=== PATIENT | female | born 1985 | race African-American/Black ===

== ENCOUNTER 2023-10-29 20:16 | Emergency (ER) | payer MEDICAID, SELFPAY ==
--- NOTE | ~2023-10-29 | XR_ITS ---
EXAMINATION: XR chest 2V DATE: 10/29/2023 22:50 INDICATION: Fatigue. TECHNIQUE: Frontal and lateral views of the chest were obtained. COMPARISON: None. FINDINGS: There is no pneumonia, pleural effusion, or pneumothorax. Cardiomegaly is noted. IMPRESSION: 1. Cardiomegaly. Reviewed, dictated and finalized at location E. TH INFORMATION CODER IMPRESSION: 1. Cardiomegaly.
[2023-10-29 20:34] VITALS: BP 147/78; PULSE 83; RESP 18; TEMP 36.2; O2SAT 100
--- NOTE | 2023-10-29 22:18 | ED.WEAKNESS ---
HPI - Weakness General Chief complaint: Weakness <Carly Christiansen PA-C - Last Filed: 10/30/23 01:31> Stated complaint: hand pain <Carly Christiansen PA-C - Last Filed: 10/30/23 01:31> Time Seen by Provider: 10/29/23 21:14 <Carly Christiansen PA-C - Last Filed: 10/30/23 01:31> History of Present Illness HPI Narrative: 38 y/o F reports for evaluation for generalized weakness, fatigue and feeling cold for the past 3 months, worsening over the past few days. Patient reports a history of iron deficiency anemia and endorses she has been noncompliant with her iron supplements. When I asked her why, she states that she sometimes just forgets to take it, also the last time she took it it caused her to be nauseous. Patient is also reporting with a lump to the dorsum of the left hand for the past 6 months. Patient states she had a lump similar to this on her right hand which spontaneously resolved. She states in the mornings, sometimes she has numbness and tingling in her entire hand and is concerned may be secondary to this lesion. She denies chest pain, shortness of breath, cough or congestion, fever, abdominal pain, nausea, vomiting, diarrhea, dysuria or hematuria, rash, lightheadedness, melena, hematochezia. Her last menstrual period was approximately 1 month ago. Denies vaginal discharge or bleeding, concern for STDs. <Carly Christiansen PA-C - Last Filed: 10/30/23 01:31> Related Data Allergies/Adverse reactions: Allergies Allergy/AdvReac Type Severity Reaction Status Date / Time amoxicillin Allergy Unknown Verified 10/29/23 20:40 <KIRIT Thomas Last Filed: 10/30/23 01:31> Review of Systems Review of Systems: CONSTITUTIONAL: See HPI EYES: Denies visual changes, redness, or discharge. ENT: Denies rhinorrhea, congestion, sore throat, or otalgia. CARDIOVASCULAR: Denies chest pain, palpitations, or edema. RESPIRATORY: Denies cough or dyspnea. GASTROINTESTINAL: Denies abdominal pain, nausea, vomiting, or diarrhea. GENITOURINARY: Denies dysuria or hematuria. SKIN: Denies rash or itching. MUSCULOSKELETAL: See HPI NEUROLOGIC: Denies headache, numbness, or weakness. PSYCHIATRIC: Denies anxiety or depression. <Carly Christiansen PA-C - Last Filed: 10/30/23 01:31> Exam Narrative: GENERAL: Well-appearing, well-nourished, and in no acute distress. Patient resting comfortably in exam bed. She is pleasant and conversational. HEAD: Normocephalic, atraumatic. EYES: PERRLA and EOMI. ENT: Nares clear, no rhinorrhea or epistaxis. Mucous membranes moist. Posterior pharynx without erythema. Uvula is midline. No tonsillar hypertrophy. Bilateral TMs are proctor nonbulging with normal canals. NECK: Supple. No nuchal rigidity. CHEST: Clear to auscultation. No respiratory distress. HEART: Regular rate and rhythm. No murmur heard. Normal peripheral pulses. ABDOMEN: Soft, nontender, nondistended, normal active bowel sounds. No rebound, guarding or rigidity. No CVA tenderness. EXTREMITIES: Ganglion cyst to the dorsum of the left hand overlying the 2nd and 3rd metacarpals. No tenderness, erythema or signs of infection. Full range of motion of all digits. Sensation intact throughout. Radial pulse 2 +. Pipeline Technician strength 5/5. Median, radial and ulnar nerves are intact. SKIN: Warm, dry, no rash. NEURO: No focal deficits. Alert and oriented x3 <Carly Christiansen PA-C - Last Filed: 10/30/23 01:31> Course MANUFACTURING SOFTWARE ENGINEER/PA Physician Supervision For this patient encounter, I reviewed the MANUFACTURING SOFTWARE ENGINEER or PA documentation, treatment plan, and medical decision making and I had [id number] time with this patient. I performed all aspects of the MDM as documented. <Jaret Simon DO - Last Filed: 10/30/23 02:09> Vital Signs Vital signs: Vital Signs Temperature 97.2 F L 10/29/23 20:34 Pulse Rate 83 10/29/23 20:34 Respiratory Rate 18 10/29/23 20:34 Blood Pressure 147/78 H 10/29/23 20:34 Pulse Oximetry
--- NOTE | 2023-10-29 22:22 | ECG_ITS ---
Measurements Intervals [place] Rate: 73 P: 44 PA: 157 QRS: 64 QRSD: 86 T: 50 QT: 370 QTc: 410 Interpretive Statements SINUS RHYTHM BASELINE ARTIFACT- I, II, AVR NORMAL ECG NO PREVIOUS ECG AVAILABLE FOR COMPARISON Electronically Signed On 10-30-2023 6:51:08 ECHOCARDIOLOGIST by Jasvir Pierre D.O.
[2023-10-29] MEDS: SODIUM CHLORIDE 0.9% IV 1,000 ML 999 ML IV CONT (22:38)
[2023-10-29 22:57] LABS: Basophils Percent Auto 0.3 % (0.2-1.2); Eosinophils Absolute Auto 0.1 K/mm3 (0-0.3); Eosinophils Percent Auto 2.4 % (0-4.4); Hematocrit 34.8 % (37.0-47.0); Hemoglobin 11.2 g/dL (12.0-15.0); Immature Granulocyte Absolute 0.01 K/mm3 (0.00-0.031); Immature Granulocyte Percent A 0.2 % (0-0.5); Lymphocytes Absolute Auto 1.95 K/mm3 (0.9-3.2); Lymphocytes Percent Auto 33.8 % (18.3-44.2); Mean Corpuscular HGB Conc 32.2 g/dl (32-36); Mean Corpuscular Hemoglobin 25.9 pg (26-34); Mean Corpuscular Volume 80.4 fl (80-100); Mean Platelet Volume 10.6 fl (7.4-10.4); Monocytes Absolute Auto 0.4 K/mm3 (0.1-0.6); Monocytes Percent Auto 6.2 % (2.6-8.5); Neutrophils Absolute Auto 3.3 K/mm3 (1.3-6.7); Neutrophils Percent Auto 57.1 % (45.5-73.1); Platelet Count Result 373 k/mm3 (150-375); Red Blood Count 4.33 M/mm3 (4.2-5.4); Red Cell Distribution Width 19.9 % (11.5-14.5); White Blood Count 5.8 K/mm3 (4.5-10.0)
[2023-10-29 23:16] LABS: Alanine Aminotransferase 20 U/L (6-35); Albumin Level 4.4 g/dL (3.5-5.1); Alkaline Phosphatase 55 U/L (38-126); Anion Gap 10 mmol/L (8-16); Aspartate Amino Transferase 24 U/L (14-36); Bilirubin,Total 0.4 mg/dL (0.2-1.3); Blood Urea Nitrogen 6 mg/dL (7-17); Calcium 9.3 mg/dL (8.4-10.2); Carbon Dioxide 26 mmol/L (22-30); Chloride 105 mmol/L (98-107); Estimated CRCL calculation 63 ml/min; Estimated Glomerular Filt Rate > 60; Glucose 86 mg/dL (65-110); Potassium 3.8 mmol/L (3.4-5.0); Sodium 141 mmol/L (137-145)
[2023-10-29 23:17] LABS: Magnesium 2.2 mg/dL (1.6-2.3)
[2023-10-29 23:30] LABS: NT Pro B Type Natriuretic Pept < 20 pg/mL (19.9-100)
[2023-10-29 23:33] LABS: Troponin I < 0.012 ng/mL (0.000-0.034)
[2023-10-29 23:40] VITALS: BP 122/80; PULSE 84; RESP 16; O2SAT 99
[2023-10-29 23:53] LABS: Influenza A QL RT-PCR Negative (Negative); Influenza B QL RT-PCR Negative (Negative); RSV RNA, RT-PCR Negative (Negative); SARS-CoV-2 RNA PCR Negative (Negative)
[2023-10-29 23:59] LABS: Appearance Urine Turbid (Clear); Bacteria Urine 4+ /hpf; Bilirubin Urine Negative (Negative); Blood Urine Negative (Negative); Color Urine Dark Yellow (Yellow); Glucose Urine UA Negative (Negative); Ketones Urine Trace mg/dL (Negative); Leukocyte Esterase Ur Negative LEU/UL (Negative); Need Manual Microscopic Reviewed; Nitrate Urine Negative (Negative); Protein Urine Negative (Negative); Specific Grav Ur 1.026 (1.001-1.035); Squamous Epithelial Cell Urine Many /hpf (Few)
[2023-10-30 00:04] LABS: Add Urine Microscopic? YES
[2023-10-30 01:23] VITALS: BP 126/82; PULSE 80; RESP 16; O2SAT 100
== END 2023-10-30 01:24 | disposition home or self-care (01) ==
PROVIDERS: Emergency Provider Physician Assistant
DX: M67.442 Ganglion, left hand (principal); Z20.822 Contact with and (suspected) exposure to COVID-19
CPT/HCPCS: 36415; 71046; 80053; 81001; 81025; 83735; 83880; 84443; 84484; 85025; 87077; 87086; 87088; 87637; 93005; 96360; 96361; 99284; J7030

== ENCOUNTER 2025-03-30 00:09 | Emergency (ER) | payer MEDICAID, SELFPAY ==
--- OUTSIDE RECORDS SUMMARY | 2025-03-30 00:11 | XMS_ITS | Referral Summary ---
Author Organization [facility] Address [address] [place] [phone] Care Team Providers Care Nuclear Waste Process Operator Name Role Phone No, Physician Primary Care Provider [phone] Allergies No known active allergies Medications acetaminophen (TYLENOL) 500 mg tablet Take 1 tablet (500 mg total) by mouth every 6 (six) hours as needed for pain 30 tablet 04/17/2022 Active lidocaine (ASPERCREME) 4 % adhesive patch,medicated Place 1 patch on the skin every 12 (twelve) hours as needed (pain) 10 patch 04/17/2022 Active naproxen (NAPROSYN) 375 mg tablet Take 1 tablet (375 mg total) by mouth 2 (two) times a day as needed for pain 30 tablet 04/30/2022 Active Social History Tobacco Use Types Packs/Day Years Used Date Smoking Tobacco: Never Smokeless Tobacco: Never Alcohol Use Standard Drinks/Week Comments Not Currently 0 (1 standard drink = 0.6 oz pur e alcohol) socially Comments No Sex and Gender Information Value Date Recorded Sex Assigned at Not on file Legal Sex Female 9:42 PM CIRCULATION CLERK Gender Identity Not on file Sexual Orientation Not on file Last Filed Vital Signs Vital Sign Reading Time Taken Comments Blood Pressure 124/72 04/30/2022 7:49 PM CDT Pulse 80 04/30/2022 7:49 PM CDT Temperature 37 C (98.6 F) 04/30/2022 4:30 PM CDT Respiratory Rate 18 04/30/2022 7:49 PM CDT Oxygen Saturation 99% 04/30/2022 7:49 PM CDT Inhaled Oxygen Concentration - - Weight 68 kg (150 lb) 04/30/2022 4:30 PM CDT Height 152.4 cm (5') 04/30/2022 4:30 PM CDT Body Mass Index 29.29 04/30/2022 4:30 PM CDT Plan of Treatment Not on file [facility] CIGNA [place] [employer] [place] [employer] Member Subscriber Plan / Payer (Ef fective 2019-Present) Name:Aidan Shara Harper Relation to Subscriber:Self Name:Aidan Shara Harper Payer ID:[id number] (NAIC) Group ID:[id number] Type:MEDICAID RISK OTHER Address: [place] [phone] [facility] [id number] [place] [address] DUAL COMPLETE [id number] [facility] Care Teams Nuclear Waste Process Operator Relationship Specialty Start Date End Date No, Physician PCP - General 04/11/22
--- OUTSIDE RECORDS SUMMARY | 2025-03-30 00:11 | XMS_ITS | Clinical Summary ---
Author Organization [facility] Address [address] [place] [phone] Care Team Providers Care Peripheral Equipment Operator Name Role Phone No, Physician Primary Care Provider [phone] Allergies No known active allergies Medications acetaminophen [...] needed for pain 30 tablet 04/30/2022 Active Surgical History Surgery Date Site/Laterality Comments COSMETIC SURGERY COMBINED AUGMENTATION MAMMAP LASTY AND ABDOMINOPLASTY IMAGE GUIDED DRAINAGE PERITO AMY OR RETROPERITONEAL FLUID COLLECTION 02/19/2021 N/A ABDOMINOPLASTY ABDOMINOPLASTY 10/27/2020 - 10/26/2021 ABSCESS CATHETER INJECTION 02/26/2021 N/A Social History Tobacco Use Types Packs/Day Years Used Date Smoking Tobacco: Never Smokeless Tobacco: Never Alcohol Use Standard Drinks/Week Comments Not Currently 0 (1 standard drink = 0.6 oz pur e alcohol) socially Comments No Sex and Gender Information Value Date Recorded Sex Assigned at Not on file Legal Sex Female 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 MANAGER Gender Identity Not on file Sexual Orientation Not on file Obstetrics History Last Filed Vital Signs Vital Sign Reading [...] 04/30/2022 4:30 PM CDT Plan of Treatment Health Maintenance Due Date Last Done Comments Breast Cancer Screening-Mammogram 1984 Cervical Cancer Screening 1984 Depression Screening 1984 Hepatitis C Screening 1984 Varicella Vaccines (1 of 2 - 13+ 2-dose series) 1997 Hepatitis B Screening 2002 Regular Well Visit/Exam 18-64 2002 Influenza Vaccine (Season Ended) 2025 DTaP/Tdap/Td Vaccine (3 - Td or Tdap) 12/27/2026 12/27/2016, 04/11/2011, 02/25/2010 HPV Vaccines Aged Out No longer eligi ble based on patient's age to complete this topic Pneumococcal vaccine <65 Aged Out No longer eligible based on patient's age to complete this topic Insurance [employer] [facility] [place] [employer]AN [place] [employer] DIVISION [facility] DUAL COMPLETE [id number] [facility] Care Teams Peripheral Equipment Operator Relationship Specialty Start Date End Date No, Physician PCP - General 04/11/22
--- OUTSIDE RECORDS SUMMARY | 2025-03-30 00:11 | XMS_ITS | Clinical Summary ---
Author Organization [facility] Address [address] [place] [address] Care Team Providers Care Tap Dancer Name Role Phone Unavailable Primary Care Provider Unavailabl e Source Comments [facility],non-owned Affiliates and Associated Physician Practices is amultiple site organization consisting of ambulatory clinics and hospital sitesin [place] and [place]. This disclosure is being madepursuant to the Care Everywhere program and may not contain all information available regarding this patient. Last updated 18.[facility] Allergies No known active allergies Social History Tobacco Use Types Packs/Day Years Used Date Smoking Tobacco: Never Alcohol Use Standard Drinks/Week Comments No 0 (1 standard drink = 0.6 oz pur e alcohol) Comments Unknown Sex and Gender Information Value Date Recorded Sex Assigned at Not on file Legal Sex Female 11:05 PM CARD CLEANER Gender Identity Not on file Sexual Orientation Not on file Last Filed Vital Signs Vital Sign Reading Time Taken Comments Blood Pressure 129/78 10/29/2016 11:07 PM CARD CLEANER Pulse 92 10/29/2016 11:07 PM CARD CLEANER Temperature 36.8 C (98.2 F) 10/29/2016 11:07 PM CARD CLEANER Respiratory Rate 18 10/29/2016 11:07 PM CARD CLEANER Oxygen Saturation 100% 10/29/2016 11:07 PM CARD CLEANER Inhaled Oxygen Concentration - - Weight 68 kg (150 lb) 10/29/2016 11:07 PM CARD CLEANER Height 152.4 cm (5') 10/29/2016 11:07 PM CARD CLEANER Body Mass Index 29.29 10/29/2016 11:07 PM CARD CLEANER Plan of Treatment Health Maintenance Due Date Last Done Comments LIPID TESTING 1984 MAMMOGRAM 1984 HIV SCREENING 1999 HEPATITIS C SCREENING 08/13/2002 DTAP/TDAP/TD VACCINES (1 - Tdap) 2003 HEPATITIS B VACCINE (1 of 3 - 19+ 3-dose series) 2003 COVID-19 VACCINE (2023-2 5 season) 2024 DEPRESSION SCREENING 10/27/2024 INFLUENZA VACCINE (Season Ended) 2025 ZOSTER VACCINE (1 of 2) 2034 HIB VACCINE Aged Out No longer eligi ble based on patient's age to complete this topic HPV VACCINE Aged Out No longer eligi ble based on patient's age to complete this topic MENINGOCOCCAL (Group B) VACC INE SHARED DECISION-MAKING Aged Out No longer eligibl e based on patient's age to complete this topic MENINGOCOCCAL GROUPS A/C/Y/W VACCINE Aged Out No longer eligible b ased on patient's age to complete this topic PNEUMOCOCCAL VACCINE Aged Out No long er eligible based on patient's age to complete this topic
--- OUTSIDE RECORDS SUMMARY | 2025-03-30 00:11 | XMS_ITS | Encounter Summary ---
Author Organization [facility] Address [address] [place] [address] Care Team Providers Care Toll Ticket Clerk Name Role Phone Unavailable Primary Care Provider Unavailabl e Encounter Details Date Type Department Care Team (Latest Contact Info) Description 04/12/2004 Outpatient Historical [facility] dL Galvez MD NO ADDRESS ON FILE PREG COMPL NEC-ANTEPART (Primary Dx) Social History Tobacco Use Types Packs/Day Years Used Date Smoking Tobacco: Never Assessed Comments Unknown Sex and Gender Information Value Date Recorded Sex Assigned at Not on file Legal Sex Female 4:11 AM CITY SUPERVISOR Gender Identity Not on file Sexual Orientation Not on file documented as of this encounter Plan of Treatment Not on file documented as of this encounter Visit Diagnoses Diagnosis Other specified complication, antepartum(646.83)- Primary Other specified complication, antepartum documented in this encounter
--- OUTSIDE RECORDS SUMMARY | 2025-03-30 00:11 | XMS_ITS | Encounter Summary ---
Author Organization [facility] Address [address] [place] [address] Care Team Providers Care Clinical Nurse Educator Name Role Phone Unavailable Primary Care Provider Unavailabl e Encounter Details Date Type Department Care Team (Late st Contact Info) Description 04/12/2004 Outpatient Historical [facility] Maternal and Ground Floor [address] [facility] [address] [place] [address] Heriberto Hardy MD [address] [address] [place] [phone] Social History Tobacco Use Types Packs/Day Years Used Date Smoking Tobacco: Never Assessed Comments Unknown Sex and Gender Information Value Date Recorded Sex Assigned at Not on file Legal Sex Female 4:11 AM EDITOR SOUND Gender Identity Not on file Sexual Orientation Not on file documented as of this encounter Plan of Treatment Not on file documented as of this encounter Visit Diagnoses Not on filedocumented in this encounter
--- OUTSIDE RECORDS SUMMARY | 2025-03-30 00:11 | XMS_ITS | Clinical Summary ---
Author Organization [facility] Address [address] [place] [address] Phone Care Team Providers Care Filling Machine Operator Name Role Phone Unavailable Primary Care Provider Unavailabl e Allergies No known active allergies Medications ibuprofen (MOTRIN) 800 mg tablet ibuprofen 800 mg tablet Active triamcinolone acetonide (KENALOG) 0.1 % Ointment APPLY TWICE DAILY 2 Active fluconazole (DIFLUCAN) 150 mg tablet Take 1 Tablet (150 mg) by mouth see administration instructions. One tablet today and repeat in three days 2 Tablet 2 Active ferrous sulfate 325 mg (65 mg iron) tablet Take 1 Tablet (325 mg) by mouth 3 times daily with meals. 90 Tablet 3 2 Active metroNIDAZOLE (FlagyL) 500 mg tablet Take 1 Tablet (500 mg) by mouth 2 times daily. 14 Tablet 4 Active Active Problems Problem Noted Date Diagnosed Date Back pain 04/06/2011 Genital herpes, unspecified 04/04/2011 RLTCS; Boy 10/18/2010 Resolved Problems Problem Noted Date Diagnosed Date Resolved Date C section 6/13 04/08/2011 01/14/2017 Low-lying placenta without hemorrhage 11/25/2010 02/28/2011 Well woman exam with routine gynecological exam 10/18/2010 01/14/2017 state, incidental 10/18/2010 0 01/14/2017 Immunizations Immunization Administration Dates Next Due (ADACEL/BOOSTRIX)(10 YR UP) TDAP VACCINE, 0.5ML, IM 12/27/2016,04/11/2011 Family History Medical History Relation Name Comments Healthy Father Heart Attack Maternal Grandfather Healthy Maternal Grandmother Hypertension Mother Healthy Paternal Grandfather Healthy Paternal Grandmother Healthy Son Breast Cancer Neg Hx Colon Cancer Neg Hx Ovarian Cancer Neg Hx Relation Name Status Comments Father Alive Maternal Grandfather Maternal Grandmother Mother Alive Paternal Grandfather Paternal Grandmother Alive Son Alive Social History Tobacco Use Types Packs/Day Years Used Date Smoking Tobacco: Never Smokeless Tobacco: Never Tobacco Cessation:Counseling Given: Not Answered Alcohol Use Standard Drinks/Week Comments Yes 0 (1 standard drink = 0.6 oz pur e alcohol) Occ Comments No Sex and Gender Information Value Date Recorded Sex Assigned at Not on file Legal Sex Female 4:11 AM INFORMATION TECHNOLOGY CONSULTANT Gender Identity Not on file Sexual Orientation Not on file Last Filed Vital Signs Vital Sign Reading Time Taken Comments Blood Pressure 110/72 07/28/2023 1:33 PM CDT Pulse 84 05/05/2017 11:09 AM CDT Temperature 36.6 C (97.9 F) 02/27/2017 7:34 AM CDT Respiratory Rate 16 02/27/2017 7:34 AM CDT Oxygen Saturation 96% 02/27/2017 7:34 AM CDT Inhaled Oxygen Concentration - - Weight 69.9 kg (154 lb) 07/28/2023 1:33 PM CDT Height 152.4 cm (5') 07/28/2023 1:33 PM CDT Body Mass Index 30.08 07/28/2023 1:33 PM CDT Plan of Treatment Health Maintenance Due Date Last Done Comments HEPATITIS B VACCINES (1 of 3 - 19+ 3-dose series) 2003 INFLUENZA VACCINE (#1) 2024 BREAST CANCER SCREENING 2024 PAP SMEAR 03/31/2026 03/31/2023, /10/2021, 11/16/2018, Additional history exists DTAP/TDAP/TD VACCINES (3 - Td or Tdap) 12/27/2026 12/27/2016, 04/11/2011 CERVICAL CANCER SCREENING 03/31/2028 HPV/Cotest (21-29) 03/31/2028 03/31/2023, 0 12/17/2021, 11/16/2018, Additional history exists HPV/Cotest (30-65) 03/31/2028 03/31/2023, 0 12/17/2021, 11/16/2018, Additional history exists HPV VACCINES Aged Out No longer eligi ble based on patient's age to complete this topic Medical Devices Implanted Type Area Stogy Roller Device Identifier Shelf Expiration Date Model / Serial / Lot Barrier Seprafilm 5x6in [id number] - [id number] Implanted:Qty: 1 on 02/24/2017 by Yobani Coleman MD at [facility] Adhesion Barrier [employer] [id number] / / Procedures Procedure Name Priority Date/Time Associated Diagnosis Comments CERV/VAG CYTO AGE BASED SCREEN PAP Routine 03/31/2023 12:21 PM CDT Well woman exam with routine gynecological exam Screening for HPV (human papillomavirus) Screening for venereal disease (VD) Cervical cancer screening from Last 3 Months or Most Recently Relevant to Health Maintenance Results * CERV/VAG CYTO AGE BASED SCREEN PAP (03/31/2023 12:21 PM CDT) COMMENT (PAP): [facility] Comment: This order for age-based cervical cancer and STI screening follows ACOG guidelines(PB 168, 140, NAB044). See individual assays for performing site location. CLINICAL INFORMATION [facility] Comment:None given LAST MENSTRUAL PERIOD [facility] Comment:NONE GIVEN PREV PAP: [facility] Comment:NONE GIVEN PREV BX: [facility] Comment:NONE GIVEN SOURCE [facility] Comment:Endocervix ADEQUACY: [facility] Comment: Satisfactory for evaluation. Endocervical/transformation zone component absent. Age and/or menstrual status not provided PAP INTERP [facility] Comment:Negative for intraep ithelial lesion or malignancy. COMMENT (PAP TEST) [facility] [place] Comment: This Pap test has been evaluated with computer assisted technology. MAILING SPECIALIST: Antonino [facility] Comment: BES, CT(ASCP) CT screening location: [place] [address] [place] [address] REVIEW MAILING SPECIALIST: Victor Hugo Santos Comment: EASON, CT(ASCP) CT Screening location: Pending sale to [facility] [address] [place] [address] EXPLANATORY NOTE [facility] [employer] [place] Comment: EXPLANATORY NOTE: The Pap is a screening test for cervical cancer. It is not a diagnostic test and is subject to false negative and false positive results. It is most reliable when a satisfactory sample, regularly obtained, is submitted with relevant clinical findings and history, and when the Pap result is evaluated along with historic and current clinical information. HPV E6/E7 Not Detected Not Detected [employer] [place] Comment: Methodology: Returned Goods Receiving Clerk-Mediated Amplification This assay detects E6/E7 viral messenger RNA (mRNA) from 14 high-risk HPV types (16,18,31,33,35,39,45,51,52,56,58,59,66,68). Cervical sources are required for HPV testing. If a vaginal source from a patient who has had a total hysterectomy with removal of cervix was submitted, please contact the testing laboratory for alternative testing options. For additional information, please refer to http://education.Ogorod/faq/GZR008a8 (This link if provided for information/ educational purposes only.) Test Performed at: [facility] [address] [place] [address] Marlon GRIMALDO Genital SWAB OF ENDOCERVIX / Unknown 03/31/2023 12:21 PM CDT 03/31/2023 9:56 PM CDT Adriana Morejon DO PATHOLOGY/CYTOLOGY ORDERABLES F inal Result [facility] [phone] [facility] [address] [place] [address] from Last 3 Months or Most Recently Relevant to Health Maintenance Insurance RX [employer]CROSSING Medicaid [facility] PLAN [facility] [id number] Advance Directives For more information, please contact: [phone] * Full Code (Latest Code Status on File) Date Activated Date Inactivated Comments 02/24/2017 3:36 PM 02/27/2017 7:31 PM * Full Code Date Activated Date Inactivated Comments 02/24/2017 10:14 AM 02/24/2017 3:36 PM * Full Code Date Activated Date Inactivated Comments 04/08/2011 4:30 PM 04/12/2011 3:50 PM * Full Code Date Activated Date Inactivated Comments 04/08/2011 10:54 AM 04/08/2011 4:30 PM
[2025-03-30 00:14] VITALS: BP 132/76; PULSE 72; RESP 16; TEMP 36.5; O2SAT 99
[2025-03-30 02:34] VITALS: BP 129/80; PULSE 75; RESP 16; O2SAT 98
--- NOTE | 2025-03-30 04:07 | PC.NURSE ---
went into room to draw labs and pt is not present. pt gown and vital sign connection on the floor. pt no where to be found in the ER. battery charger tester and security notified
--- OUTSIDE RECORDS SUMMARY | 2025-03-30 04:44 | XMS_ITS | Referral Summary ---
Author Organization [facility] Address [address] [place] [phone] Care Team Providers Care Erp Developer Name Role Phone No, Physician Primary Care Provider [phone] Allergies No known active allergies Medications acetaminophen [...] on file Legal Sex Female 9:42 PM CLERICAL ADMINISTRATOR Gender Identity Not on file Sexual Orientation [...] Plan of Treatment Not on file [facility] CIGNA [place] [employer]AN [place] [employer] DIV[employer] Member Subscriber Plan / Payer (Ef fective 2019-Present) Name:Aidan Shara Harper Relation to Subscriber:Self Name:Aidan Shara Harper Payer ID:[id number] (NAIC) Group ID:[id number] Type:MEDICAID RISK OTHER Address: [place] [id number] [facility] [id number] [place] [address] DUAL COMPLETE [id number] [facility] Care Teams Erp Developer Relationship Specialty Start Date End Date No, Physician PCP - General 04/11/22
--- OUTSIDE RECORDS SUMMARY | 2025-03-30 04:44 | XMS_ITS | Encounter Summary ---
Author Organization [facility] Address [address] [place] [address] Care Team Providers Care Parking Meter Attendant Name Role Phone Unavailable Primary Care Provider Unavailabl e Encounter Details Date Type Department Care Team (Late st Contact Info) Description 04/12/2004 Outpatient Historical [facility] Maternal and Ground Floor [address] [facility] [address] [place] [address] Heriberto Hardy MD [address] [facility] [address] [place] [phone] Social History Tobacco Use Types Packs/Day Years Used Date Smoking Tobacco: Never Assessed Comments Unknown Sex and Gender Information Value Date Recorded Sex Assigned at Not on file Legal Sex Female 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
--- OUTSIDE RECORDS SUMMARY | 2025-03-30 04:44 | XMS_ITS | Continuity of Care Document ---
Author Organization [facility] Address [address] [place] [address] Phone Care Team Providers Care Lead Clinical Research Coordinator Name Role Phone Unavailable Unavailable Unavailable Medications Medication Instructions Dosage Effective Dates (start - stop) Status Comments ibuprofen 800 mg tablet take 1 tablet by ORAL route every 5 - 6 hours with food as needed 800 MG - No Longer Active Procedures Procedure Date Limit Oral Evaluation- problem focused O Exempt From Sealant Measure Periapical Radiographic, first Image Jul Extraction erupted tooth or exposed root Advance Directives Directive Yes / No Effective Date File Name No Information Encounters Encounter Description Practice Location Reason(s) For Visit Diagnoses Date Provider Providers Copied on Encounter [facility] , [address], [place], [place], [id number], [place] tel:[phone] [facility] Encounter for dental exam and cleaning w/o abnormal findings No Information Family History Family Member Type Diagnosis Age At Onset No Information Payers Payer name Insurance type Covered libertarian ID Authoriza tion(s) No Information Social History Type Description Quantity Date Captured Comments Sex Female Smoking Status No Information Chief Complaint And Reason For Visit No Information Reason For Referral Reason For Referral No Information History Of Present Illness Encounter Date Complaint History Of Prese nt Illness No Information Functional Status Date Functional Assessmen t No Information Instructions Date Instruction Additional Infor mation No Information Assessments Type Assessment Date No Information Patient Care Teams Name Effective Dates (start - stop) Status Members No Information
--- OUTSIDE RECORDS SUMMARY | 2025-03-30 04:44 | XMS_ITS | Encounter Summary ---
Author Organization [facility] Address [address] [place] [address] Care Team Providers Care Flavor Room Worker Name Role Phone Unavailable Primary Care Provider Unavailabl e Encounter Details Date Type Department Care Team (Latest Contact Info) Description 04/12/2004 Outpatient Historical [facility] Ld Galvez MD NO ADDRESS ON FILE PREG COMPL NEC-ANTEPART (Primary Dx) Social History Tobacco Use Types Packs/Day Years Used Date Smoking Tobacco: Never Assessed Comments Unknown Sex and Gender Information Value Date Recorded Sex Assigned at Not on file Legal Sex Female 4:11 AM SOCIAL SERVICES ASSISTANT Gender Identity Not on file Sexual Orientation Not on file documented as of this encounter Plan of Treatment Not on file documented as of this encounter Visit Diagnoses Diagnosis Other specified complication, antepartum(646.83)- Primary Other specified complication, antepartum documented in this encounter
--- OUTSIDE RECORDS SUMMARY | 2025-03-30 04:44 | XMS_ITS | Continuity of Care Document ---
Author Organization [facility] Address [address] [place] [address] Phone Care Team Providers Care Neuroradiologist Name Role Phone Unavailable Unavailable Unavailable Advance Directives Directive Yes / No Effective Date File Name No Information Encounters Encounter Description Practice Location Reason(s) For Visit Diagnoses Date Provider Providers Copied on Encounter [facility], [address] [facility], [place], [place], [id number], tel:[phone] [facility] No Information 7 No Information Referring Provider: MINNIE BONE, [address], [place], [address]. tel:[phone] Family History Family Member Type Diagnosis Age At Onset No Information Payers Payer name Insurance type Covered democrat ID Authoriza tibee(s) [facility] [place] [id number] Social History Type Description Quantity Date Captured Comments Sex Female Smoking Status No Information Chief Complaint And Reason For Visit No Information History Of Present Illness Encounter Date Complaint History Of Prese nt Illness No Information Instructions Date Instruction Additional Infor mation No Information Assessments Type Assessment Date No Information
--- OUTSIDE RECORDS SUMMARY | 2025-03-30 04:44 | XMS_ITS | Clinical Summary ---
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 See individual assays for performing site location. CLINICAL INFORMATION [facility] Comment:None given LAST MENSTRUAL PERIOD [facility] Comment:NONE GIVEN PREV PAP: [facility] Comment:NONE GIVEN PREV BX: [facility] Comment:NONE GIVEN SOURCE [facility] Comment:Endocervix ADEQUACY: [facility] Comment: Satisfactory for evaluation. Endocervical/transformation zone component absent. Age and/or menstrual status not provided PAP INTERP [facility] Comment:Negative for intraep ithelial lesion or malignancy. COMMENT (PAP TEST) [facility] [place] Comment: This Pap test has been evaluated with computer assisted technology. NURSE PRACTITIONER HOSPITALIST: [facility] Comment: BES, CT(ASCP) CT screening location: [place] [address] [place] [address] REVIEW NURSE PRACTITIONER HOSPITALIST: Victor Hugo Santos Comment: EASON, CT(ASCP) CT Screening location: [facility] [place] [address] EXPLANATORY NOTE Que [email or web address] [place] Comment: EXPLANATORY NOTE: The Pap is a [...] information. HPV E6/E7 Not Detected Not Detected [employer] [place] Comment: Methodology: Administrative Office Clerk-Mediated Amplification This assay detects E6/E7 viral messenger RNA (mRNA) from 14 high-risk HPV types (16,18,31,33,35,39,45,51,52,56,58,59,66,68). Cervical sources are required for HPV testing. If a vaginal source from a patient who has had a total hysterectomy with removal of cervix was submitted, please contact the testing laboratory for alternative testing options. For additional information, please refer to http://education.MuseAmi/faq/MZN749v1 (This link if provided for information/ educational purposes only.) Test Performed at: [facility] [address] [place] [address] Marlon GRIMALDO Genital SWAB OF ENDOCERVIX / Unknown 03/31/2023 12:21 PM CDT 03/31/2023 9:56 PM CDT Adriana Morejon DO PATHOLOGY/CYTOLOGY ORDERABLES F inal Result [facility] [phone] [facility] [address] [place] [address] from Last 3 Months or Most Recently Relevant to Health Maintenance Insurance RX INFOCROSSING Medicaid [facility] PLAN [facility] [id number] Advance Directives For more information, please contact: [phone] * Full Code (Latest Code Status on [...]
--- OUTSIDE RECORDS SUMMARY | 2025-03-30 04:44 | XMS_ITS | Clinical Summary ---
Author Organization [facility] Address [address] [place] [address] Care Team Providers Care Help Desk Support Specialist Name Role Phone Unavailable Primary Care Provider Unavailabl e Source Comments [facility],non-owned Affiliates and Associated Physician Practices is amultiple site organization consisting of ambulatory clinics and hospital sitesin [place], [place], [place] and [place]. This disclosure is being madepursuant to the Care Everywhere program and may not contain all information available regarding this patient. Last updated 18.[facility] Allergies No known active allergies Social History Tobacco Use Types Packs/Day Years Used Date Smoking Tobacco: Never Alcohol Use Standard Drinks/Week Comments No 0 (1 standard drink = 0.6 oz pur e alcohol) Comments Unknown Sex and Gender Information Value Date Recorded Sex Assigned at Not on file Legal Sex Female 11:05 PM KAITARA TARAKA Gender Identity Not on file Sexual Orientation Not on file Last Filed Vital Signs Vital Sign Reading Time Taken Comments Blood Pressure 129/78 10/29/2016 11:07 PM KAITARA TARAKA Pulse 92 10/29/2016 11:07 PM KAITARA TARAKA Temperature 36.8 C (98.2 F) 10/29/2016 11:07 PM KAITARA TARAKA Respiratory Rate 18 10/29/2016 11:07 PM KAITARA TARAKA Oxygen Saturation 100% 10/29/2016 11:07 PM KAITARA TARAKA Inhaled Oxygen Concentration - - Weight 68 kg (150 lb) 10/29/2016 11:07 PM KAITARA TARAKA Height 152.4 cm (5') 10/29/2016 11:07 PM KAITARA TARAKA Body Mass Index 29.29 10/29/2016 11:07 PM KAITARA TARAKA Plan of Treatment Health Maintenance Due Date [...]
--- OUTSIDE RECORDS SUMMARY | 2025-03-30 04:44 | XMS_ITS | Continuity of Care Document ---
Author Organization [facility] Address [address] [place] [address] Phone Care Team Providers Care Digital Hardware Design Engineer Name Role Phone Agnieszka Aden PTA Unavailable Unavailable Procedures Procedure Date Therapeutic Exercise Neuromuscular Re-Ed Manual Therapy Ultrasound PT Evaluation Moderate Complexity Therapeutic Exercise Ultrasound Advance Directives Directive Yes / No Effective Date File Name No Information Encounters Encounter Description Practice Location Reason(s) For Visit Diagnoses Date Provider Providers Copied on Encounter [facility], [address] [place] [address], [place], [place], [id number], tel:[phone] Rey Plantar fascial fibromatosisOth symptoms and signs involving the musculoskeletal system 9 Markie Aaron. [address], [address], [address], . tel:[phone] Referring Provider: Fredy Mahmood, [address] [facility] [address], [place], [address]. tel:[phone] [facility], [address] [place] [address], [place], [place], [id number], tel:[phone] Rey Plantar fascial fibromatosisOth symptoms and signs involving the musculoskeletal system 9 Richard Dowell . Referring Provider: Fredy Mahmood [address] [facility] [address], [place], [address]. tel:[phone] Family History Family Member Type Diagnosis Age At Onset No Information Payers Payer name Insurance type Covered republican ID Michael trejo(ralf Wilburn [id number] Social History Type Description Quantity Date Captured [...]
--- OUTSIDE RECORDS SUMMARY | 2025-03-30 04:44 | XMS_ITS | Clinical Summary ---
Author Organization [facility] Address [address] [place] [address] Care Team Providers Care Manager Activities Name Role Phone No, Physician Primary Care Provider [phone] Allergies No known active allergies Medications acetaminophen [...] on file Legal Sex Female 9:42 PM POSTAL SUPERINTENDENT Gender Identity Not on file Sexual Orientation [...] patient's age to complete this topic Insurance [employer] HEALTHCARE [facility] [place] [facility]AN [place] [facility] DUAL COMPLETE [id number] [facility] Address: [address] [address] [facility] Care Teams Manager Activities Relationship Specialty Start Date End Date No, Physician PCP - General 04/11/22
== END 2025-03-30 04:07 | disposition left against medical advice (07) ==
DX: R19.09 Other intra-abdominal and pelvic swelling, mass and lump (principal)
CPT/HCPCS: 99199

== ENCOUNTER 2025-03-30 15:22 | Emergency (ER) | payer MEDICAID, SELFPAY ==
--- NOTE | ~2025-03-30 | CT_ITS ---
CT abdomen pelvis w con Ordering provider: Carly Christiansen PA-C History: 39 years Female with . epigastric abd pain . Comparison: None. Technique: CT abdomen and pelvis with IV and without oral contrast. Automated exposure control and it erative reconstruction technique were employed. The dose-length product was 389.53 mGy-cm. 100 mL Omn ipaque 350 was given IV. Findings: Bilateral breast implants. VISUALIZED LOWER CHEST: Normal. UPPER ABDOMINAL ORGANS: Liver: Normal. Gallbladder: Contracted. Spleen: Normal. Stomach/duodenum: Normal. Pancreas: Normal. Adrenals: Normal. Kidneys: Normal. PELVIC ORGANS: The bladder is underfilled with thickened wall which may indicate cystitis. Clinical c orrelation advised. Right ovarian cyst seen measuring 2.5 cm. Prominent cervix with possible soft tissue density seen pos teriorly is noted. Clinical correlation is advised. Small nabothian cyst in the cervix. BOWEL AND MESENTERY: Colon: No evidence of diverticulitis. Fecal material is loaded in the colon.. Appendix is not demonstrated. Small Bowel: Normal. No obstruction. Peritoneum/mesentery: No free air or free fluid. No mesenteric lymphadenopathy. RETROPERITONEUM: Normal aorta. No retroperitoneal lymphadenopathy. MUSCULOSKELETAL: Superficial soft tissues: The superficial soft tissues are normal. Bones: Normal spine. IMPRESSION: 1. No evidence of appendicitis, diverticulitis or intestinal obstruction. 2. Right ovarian cyst. 3. Possible soft tissue density in the posterior cervix. Clinical evaluation advised. 4. Constipation Reviewed, dictated and finalized at location A. IMPRESSION: 1. No evidence of appendicitis, diverticulitis or intestinal obstruction. 2. Right ovarian cyst. 3. Possible soft tissue density in the posterior cervix. Clinical evaluation a dvised. 4. Constipation
--- OUTSIDE RECORDS SUMMARY | 2025-03-30 15:27 | XMS_ITS | Encounter Summary ---
Author Organization [facility] Address [address] [place] [address] Care Team Providers Care Veneer Joiner Name Role Phone Unavailable Primary Care Provider Unavailabl e Encounter Details Date Type Department Care Team (Latest Contact Info) Description 04/12/2004 Outpatient Historical [facility] Ld Galvez MD NO ADDRESS ON FILE PREG COMPL NEC-ANTEPART (Primary Dx) Social History Tobacco Use Types Packs/Day Years Used Date Smoking Tobacco: Never Assessed Comments Unknown Sex and Gender Information Value Date Recorded Sex Assigned at Not on file Legal Sex Female 4:11 AM IT SOLUTIONS ARCHITECT Gender Identity Not on file Sexual Orientation Not on file documented as of this encounter Plan of Treatment Not on file documented as of this encounter Visit Diagnoses Diagnosis Other specified complication, antepartum(646.83)- Primary Other specified complication, antepartum documented in this encounter
--- OUTSIDE RECORDS SUMMARY | 2025-03-30 15:27 | XMS_ITS | Clinical Summary ---
Author Organization [facility] Address [address] [place] [address] Care Team Providers Care Blasting Clay Miner Name Role Phone No, Physician Primary Care Provider [phone] Allergies No known active allergies Medications acetaminophen [...] on file Legal Sex Female 9:42 PM COTTON FACTOR Gender Identity Not on file Sexual Orientation [...] patient's age to complete this topic Insurance [employer] HEALTHCARE [facility] HE[facility] PLAN [facility] DUAL COMPLETE [id number] [facility] Address: [address] [address] [facility] Care Teams Blasting Clay Miner Relationship Specialty Start Date End Date No, Physician PCP - General 04/11/22
--- OUTSIDE RECORDS SUMMARY | 2025-03-30 15:27 | XMS_ITS | Encounter Summary ---
Author Organization [facility] Address [address] [place] [address] Care Team Providers Care Partner Name Role Phone Unavailable Primary Care Provider Unavailabl e Encounter Details Date Type Department Care Team (Late st Contact Info) Description 04/12/2004 Outpatient Historical [facility] Ground [facility] [address] [place] [address] Heriberto Hardy MD [address] [facility] [address] [place] [phone] Social History Tobacco Use Types Packs/Day Years Used Date Smoking Tobacco: Never Assessed Comments Unknown Sex and Gender Information Value Date Recorded Sex Assigned at Not on file Legal Sex Female 4:11 AM JANITOR HEAD Gender Identity Not on file Sexual Orientation Not on file documented as of this encounter Plan of Treatment Not on file documented as of this encounter Visit Diagnoses Not on filedocumented in this encounter
--- OUTSIDE RECORDS SUMMARY | 2025-03-30 15:27 | XMS_ITS | Referral Summary ---
Author Organization [facility] Address [address] [place] [address] Care Team Providers Care Order Editor Name Role Phone No, Physician Primary Care Provider [phone] Allergies No known active allergies Medications acetaminophen [...] on file Legal Sex Female 9:42 PM CAMELID FIBER SORTER Gender Identity Not on file Sexual Orientation [...] Plan of Treatment Not on file Insurance [facility] CIGNA [place] [employer] PLAN [facility] Member Subscriber Plan / Payer (Ef fective 2019-Present) Name:Aidan Shara Harper Relation to Subscriber:Self Name:Aidan Shara Harper Payer ID:[id number] (NAIC) Group ID:[id number] Type:MEDICAID RISK OTHER Address: [place] [id number] [facility] [id number] [place] [address] DUAL COMPLETE [id number] [facility] MED[facility] Address: [address] [place] [address] [facility] Care Teams Order Editor Relationship Specialty Start Date End Date No, Physician PCP - General 04/11/22
--- OUTSIDE RECORDS SUMMARY | 2025-03-30 15:27 | XMS_ITS | Clinical Summary ---
Author Organization [facility] Address [address] [place] [address] Care Team Providers Care Tool Programmer Name Role Phone Unavailable Primary Care Provider Unavailabl e Source Comments [facility],non-owned Affiliates and Associated Physician Practices is amultiple site organization consisting of ambulatory clinics and hospital sitesin [place], [place], [place] and [place]. This disclosure is being madepursuant to the Care Everywhere program and may not contain all information available regarding this patient. Last updated 18.[facility] Allergies No known active allergies Social History Tobacco Use Types Packs/Day Years Used Date Smoking Tobacco: Never Alcohol Use Standard Drinks/Week Comments No 0 (1 standard drink = 0.6 oz pur e alcohol) Comments Unknown Sex and Gender Information Value Date Recorded Sex Assigned at Not on file Legal Sex Female 11:05 PM REGIONAL RETAIL SALES MANAGER Gender Identity Not on file Sexual Orientation Not on file Last Filed Vital Signs Vital Sign Reading Time Taken Comments Blood Pressure 129/78 10/29/2016 11:07 PM REGIONAL RETAIL SALES MANAGER Pulse 92 10/29/2016 11:07 PM REGIONAL RETAIL SALES MANAGER Temperature 36.8 C (98.2 F) 10/29/2016 11:07 PM REGIONAL RETAIL SALES MANAGER Respiratory Rate 18 10/29/2016 11:07 PM REGIONAL RETAIL SALES MANAGER Oxygen Saturation 100% 10/29/2016 11:07 PM REGIONAL RETAIL SALES MANAGER Inhaled Oxygen Concentration - - Weight 68 kg (150 lb) 10/29/2016 11:07 PM REGIONAL RETAIL SALES MANAGER Height 152.4 cm (5') 10/29/2016 11:07 PM REGIONAL RETAIL SALES MANAGER Body Mass Index 29.29 10/29/2016 11:07 PM REGIONAL RETAIL SALES MANAGER Plan of Treatment Health Maintenance Due Date [...]
--- OUTSIDE RECORDS SUMMARY | 2025-03-30 15:27 | XMS_ITS | Clinical Summary ---
Author Organization [facility] Address [address] [facility] [address] [facility] [place] [address] Phone Care Team Providers Care Door Liner Helper Name Role Phone Unavailable Primary Care Provider [...] on file Legal Sex Female 4:11 AM AIR POLLUTION AUDITOR Gender Identity Not on file Sexual Orientation [...] this topic Medical Devices Implanted Type Area Steak Tenderizer Machine Device Identifier Shelf Expiration Date Model / Serial / Lot Barrier Seprafilm 5x6in [id number] - [id number] Implanted:Qty: 1 on 02/24/2017 by Yobani Coleman MD at [facility] Adhesion Barrier [employer] [id number] / / Procedures Procedure Name Priority Date/Time [...] 12:21 PM CDT) COMMENT (PAP): [facility] Comment: This order for age-based cervical cancer and STI screening follows ACOG guidelines(PB 168, 140, XKZ479). See individual assays for performing site location. CLINICAL INFORMATION [facility] Comment:None given LAST MENSTRUAL PERIOD [facility] Comment:NONE GIVEN PREV PAP: [facility] Comment:NONE GIVEN PREV BX: [facility] Comment:NONE GIVEN SOURCE [facility] Comment:Endocervix ADEQUACY: [facility] Comment: Satisfactory for evaluation. Endocervical/transformation zone component absent. Age and/or menstrual status not provided PAP INTERP [facility] Comment:Negative for intraep ithelial lesion or malignancy. COMMENT (PAP TEST) [facility] Comment: This Pap test has been evaluated with computer assisted technology. PROJECTION WELDING MACHINE OPERATOR: [facility] Comment: BES, CT(ASCP) CT screening location: [place] [address] [place] [address] REVIEW PROJECTION WELDING MACHINE OPERATOR: Victor Hugo Santos Comment: EASON, CT(ASCP) CT Screening location: [facility] [place] [address] EXPLANATORY NOTE Que [employer] [place] Comment: EXPLANATORY NOTE: The Pap is a [...] information. HPV E6/E7 Not Detected Not Detected [facility] [place] Comment: Methodology: Production Supervisor Trainee-Mediated Amplification This assay detects E6/E7 viral messenger RNA (mRNA) from 14 high-risk HPV types (16,18,31,33,35,39,45,51,52,56,58,59,66,68). Cervical sources are required for HPV testing. If a vaginal source from a patient who has had a total hysterectomy with removal of cervix was submitted, please contact the testing laboratory for alternative testing options. For additional information, please refer to http://education.Rare Pink/faq/CXU193t2 (This link if provided for information/ educational purposes only.) Test Performed at: [facility] [address] [place] [address] Marlon GRIMALDO Genital SWAB OF ENDOCERVIX / Unknown 03/31/2023 12:21 PM CDT 03/31/2023 9:56 PM CDT Adriana Morejon DO PATHOLOGY/CYTOLOGY ORDERABLES F inal Result [facility] [phone] [facility] [address] [place] [address] from Last 3 Months or Most Recently Relevant to Health Maintenance Insurance RX INFOCROSSING Medicaid [facility] PLAN [facility] [address] Advance Directives For more information, please contact: [phone] * Full Code (Latest Code Status on [...]
[2025-03-30 15:36] VITALS: BP 121/70; PULSE 67; RESP 18; TEMP 36.7; O2SAT 100
[2025-03-30 15:45] LABS: Basophils Percent Auto 0.4 % (0.2-1.2); Eosinophils Absolute Auto 0.2 K/mm3 (0-0.3); Eosinophils Percent Auto 2.8 % (0-4.4); Hematocrit 30.7 % (37.0-47.0); Hemoglobin 9.6 g/dL (12.0-15.0); Immature Granulocyte Absolute 0.01 K/mm3 (0.00-0.031); Immature Granulocyte Percent A 0.1 % (0-0.5); Lymphocytes Absolute Auto 1.76 K/mm3 (0.9-3.2); Lymphocytes Percent Auto 23.3 % (18.3-44.2); Mean Corpuscular HGB Conc 31.3 g/dl (32-36); Mean Corpuscular Hemoglobin 23.8 pg (26-34); Mean Corpuscular Volume 76.2 fl (80-100); Mean Platelet Volume 10.5 fl (7.4-10.4); Monocytes Absolute Auto 0.4 K/mm3 (0.1-0.6); Monocytes Percent Auto 5.2 % (2.6-8.5); Neutrophils Absolute Auto 5.2 K/mm3 (1.3-6.7); Neutrophils Percent Auto 68.2 % (45.5-73.1); Platelet Count Result 317 k/mm3 (150-375); Red Blood Count 4.03 M/mm3 (4.2-5.4); Red Cell Distribution Width 19.1 % (11.5-14.5); White Blood Count 7.6 K/mm3 (4.5-10.0)
[2025-03-30 15:51] LABS: BEDSIDEPREGUCG Negative (Negative)
[2025-03-30 15:55] LABS: Alanine Aminotransferase 13 U/L (6-35); Albumin Level 4.5 g/dL (3.5-5.1); Alkaline Phosphatase 38 U/L (38-126); Anion Gap 10 mmol/L (4-12); Aspartate Amino Transferase 22 U/L (14-36); Bilirubin,Total 0.5 mg/dL (0.2-1.3); Blood Urea Nitrogen 9 mg/dL (7-17); Calcium 9.4 mg/dL (8.4-10.2); Carbon Dioxide 23 mmol/L (22-30); Chloride 106 mmol/L (98-107); Estimated CRCL calculation 70 ml/min; Estimated Glomerular Filt Rate > 60; Glucose 110 mg/dL (65-110); Lipase 92 U/L (23-300); Sodium 139 mmol/L (137-145); Total Protein 7.7 g/dL (6.3-8.2)
[2025-03-30 16:03] LABS: Add Urine Microscopic? NO; Appearance Urine Clear (Clear); Bilirubin Urine Negative (Negative); Blood Urine Negative (Negative); Color Urine Yellow (Yellow); Glucose Urine UA Negative (Negative); Ketones Urine 1+ mg/dL (Negative); Leukocyte Esterase Ur Negative LEU/UL (Negative); Nitrate Urine Negative (Negative); Protein Urine Negative (Negative); Specific Grav Ur 1.028 (1.001-1.035)
--- OUTSIDE RECORDS SUMMARY | 2025-03-30 16:16 | XMS_ITS | Encounter Summary ---
Author Organization [facility] Address [address] [place] [address] Care Team Providers Care Mine Analyst Name Role Phone Unavailable Primary Care Provider Unavailabl e Encounter Details Date Type Department Care Team (Late st Contact Info) Description 04/12/2004 Outpatient Historical [facility] M[facility] and Ground Floor [facility] [address] [place] [address] Heriberto Hardy MD [address] [facility] [address] [place] [phone] Social History Tobacco Use Types Packs/Day Years Used Date Smoking Tobacco: Never Assessed Comments Unknown Sex and Gender Information Value Date Recorded Sex Assigned at Not on file Legal Sex Female 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
--- OUTSIDE RECORDS SUMMARY | 2025-03-30 16:16 | XMS_ITS | Clinical Summary ---
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 FEDERAL AGENT Gender Identity Not on file Sexual Orientation [...] this topic Medical Devices Implanted Type Area Masking Machine Operator Device Identifier Shelf Expiration Date Model / Serial / Lot Barrier Seprafilm 5x6in [id number] - [id number] Implanted:Qty: 1 on 02/24/2017 by Yobani Coleman MD at [facility] Adhesion Barrier [employer] [id number] / / Procedures Procedure Name Priority Date/Time [...] 12:21 PM CDT) COMMENT (PAP): [facility] Comment: This order for age-based cervical cancer and STI screening follows ACOG guidelines(PB 168, 140, QXL101). See individual assays for performing site location. CLINICAL INFORMATION [facility] Comment:None given LAST MENSTRUAL PERIOD [facility] Comment:NONE GIVEN PREV PAP: [facility] Comment:NONE GIVEN PREV BX: [facility] Comment:NONE GIVEN SOURCE [facility] Comment:Endocervix ADEQUACY: [facility] Comment: Satisfactory for evaluation. Endocervical/transformation zone component absent. Age and/or menstrual status not provided PAP INTERP [facility] Comment:Negative for intraep ithelial lesion or malignancy. COMMENT (PAP TEST) [facility] Comment: This Pap test has been evaluated with computer assisted technology. MEDICAL CSR: [facility] Comment: BES, CT(ASCP) CT screening location: [place] [address] [place] [address] REVIEW MEDICAL CSR: Victor Hugo Santos Comment: EASON, CT(ASCP) CT Screening location: [facility] [address] [place] [address] EXPLANATORY NOTE [facility] [place] Comment: EXPLANATORY NOTE: The Pap is a [...] information. HPV E6/E7 Not Detected Not Detected [facility] [place] Comment: Methodology: Pearl Cutter-Mediated Amplification This assay detects E6/E7 viral messenger RNA (mRNA) from 14 high-risk HPV types (16,18,31,33,35,39,45,51,52,56,58,59,66,68). Cervical sources are required for HPV testing. If a vaginal source from a patient who has had a total hysterectomy with removal of cervix was submitted, please contact the testing laboratory for alternative testing options. For additional information, please refer to http://education.Parastructure/faq/DPL813b0 (This link if provided for information/ educational purposes only.) Test Performed at: [facility] [address] [place] [address] Marlon GRIMALDO Genital SWAB OF ENDOCERVIX / Unknown 03/31/2023 12:21 PM CDT 03/31/2023 9:56 PM CDT Adriana Morejon DO PATHOLOGY/CYTOLOGY ORDERABLES F inal Result [facility] [phone] [facility] [address] [place] [address] from Last 3 Months or Most Recently Relevant to Health Maintenance Insurance RX [employer] Medicaid [facility] [id number] Advance Directives For more information, please contact: [phone] * Full Code (Latest Code Status on [...]
--- OUTSIDE RECORDS SUMMARY | 2025-03-30 16:16 | XMS_ITS | Continuity of Care Document ---
Author Organization [facility] Address [address] [place] [address] Phone Care Team Providers Care Hearing Specialist Name Role Phone Unavailable Unavailable Unavailable Medications [...] Diagnoses Date Provider Providers Copied on Encounter [employer] [facility] , [address], [place], [place], [id number], [place] tel:[phone] [facility] Encounter for dental exam and cleaning w/o abnormal findings No Information Family History Family Member Type Diagnosis Age At Onset No Information Payers Payer name Insurance type Covered republican ID Authoriza tion(s) No Information Social History [...]
--- OUTSIDE RECORDS SUMMARY | 2025-03-30 16:17 | XMS_ITS | Clinical Summary ---
Author Organization [facility] Address [address] [place] [address] Care Team Providers Care Timing Machine Operator Name Role Phone Unavailable Primary Care Provider Unavailabl e Source Comments [facility],non-owned Affiliates and Associated Physician Practices is amultiple site organization consisting of ambulatory clinics and hospital sitesin [place], [place], [place] and [place]. This disclosure is being madepursuant to the Care Everywhere program and may not contain all information available regarding this patient. 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 Gender Identity Not on file Sexual Orientation Not on file Last Filed Vital Signs Vital Sign Reading Time Taken Comments Blood Pressure 129/78 10/29/2016 11:07 PM SUPERVISOR PROP MAKING Pulse 92 10/29/2016 11:07 PM SUPERVISOR PROP MAKING Temperature 36.8 C (98.2 F) 10/29/2016 11:07 PM SUPERVISOR PROP MAKING Respiratory Rate 18 10/29/2016 11:07 PM SUPERVISOR PROP MAKING Oxygen Saturation 100% 10/29/2016 11:07 PM SUPERVISOR PROP MAKING Inhaled Oxygen Concentration - - Weight 68 kg (150 lb) 10/29/2016 11:07 PM SUPERVISOR PROP MAKING Height 152.4 cm (5') 10/29/2016 11:07 PM SUPERVISOR PROP MAKING Body Mass Index 29.29 10/29/2016 11:07 PM SUPERVISOR PROP MAKING Plan of Treatment Health Maintenance Due Date [...]
--- OUTSIDE RECORDS SUMMARY | 2025-03-30 16:17 | XMS_ITS | Continuity of Care Document ---
Author Organization [facility] Address [address] [place] [address] Phone Care Team Providers Care Team Manager Name Role Phone Unavailable Unavailable Unavailable Advance Directives Directive Yes / No Effective Date File Name No Information Encounters Encounter Description Practice Location Reason(s) For Visit Diagnoses Date Provider Providers Copied on Encounter [facility], [address] [facility], [place], [place], [id number], tel:[phone] [facility] OUT[facility]IENT No Information 7 No Information Referring Provider: MINNIE BONE, [address] [facility] [address], [place], [address]. tel:[phone] Family History Family Member Type Diagnosis Age At Onset No Information Payers Payer name Insurance type Covered republican ID Authoriza tibee(s) [facility] [place] [place] O [id number] Social History Type Description Quantity Date Captured Comments Sex Female Smoking Status No Information Chief Complaint And Reason For Visit No Information History Of Present Illness Encounter Date Complaint History Of Prese nt Illness No Information Instructions Date Instruction Additional Infor mation No Information Assessments Type Assessment Date No Information
--- OUTSIDE RECORDS SUMMARY | 2025-03-30 16:17 | XMS_ITS | Encounter Summary ---
Author Organization [facility] Address 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
--- OUTSIDE RECORDS SUMMARY | 2025-03-30 16:18 | XMS_ITS | Referral Summary ---
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 Gender Identity Not on file Sexual Orientation [...] Plan of Treatment Not on file [facility] CIGNA [place] STATE [place]AN [place] [employer] Member Subscriber Plan / Payer (Ef fective 2019-Present) Name:Aidan Shara Harper Relation to Subscriber:Self Name:Aidan Shara Harper Payer ID:[id number] (NAIC) Group ID:[id number] Type:MEDICAID RISK OTHER Address: [place] [id number] [facility] [id number] [place] [address] DUAL COMPLETE [id number] [facility] MED[facility] Address: [address] [place] [phone] [facility] Care Teams Oracle Security Consultant Relationship Specialty Start Date End Date No, Physician PCP - General 04/11/22
--- OUTSIDE RECORDS SUMMARY | 2025-03-30 16:18 | XMS_ITS | Continuity of Care Document ---
Author Organization [facility] Address [address] [place] [address] Phone Care Team Providers Care Community Arts Officer Name Role Phone Agnieszka Aden PTA Unavailable Unavailable Procedures Procedure Date Therapeutic Exercise Neuromuscular Re-Ed Manual Therapy Ultrasound PT Evaluation Moderate Complexity Therapeutic Exercise Ultrasound Advance Directives Directive Yes / No Effective Date File Name No Information Encounters Encounter Description Practice Location Reason(s) For Visit Diagnoses Date Provider Providers Copied on Encounter [facility], [address] [place] [address], [place], [place], [id number], tel:[phone] Rey Plantar fascial fibromatosisOth symptoms and signs involving the musculoskeletal system 9 Markie Aaron. [address] [facility], [address], [place], [address], . tel:[phone] Referring Provider: Fredy Mahmood, [address] [facility] [address], [place], [address]. tel:[phone] [facility], [address] [place] [address], [place], [place], [id number], tel:[phone] Rey Plantar fascial fibromatosisOth symptoms and signs involving the musculoskeletal system 9 Richard Dowell . Referring Provider: Fredy Mahmood [address] [facility] [address], [place], [address]. tel:[phone] Family History Family Member Type Diagnosis Age At Onset No Information Payers Payer name Insurance type Covered green party ID Michael trejo(ralf Wilburn [id number] Social History Type Description Quantity Date Captured [...]
--- OUTSIDE RECORDS SUMMARY | 2025-03-30 16:18 | XMS_ITS | Clinical Summary ---
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
--- NOTE | 2025-03-30 17:42 | ED.RECABL ---
HPI - Recheck/Abnormal Lab/Rx General Chief Complaint: Recheck/Abnormal Lab/Rx Stated Complaint: lump on my stomach Time Seen by Provider: 03/30/25 15:52 History of Present Illness HPI narrative: 39-year-old female presents to the emergency department with concerns for a abdominal hernia. Patient states she has noticed a bulge to her periumbilical/epigastric region for about a year intermittently. States over the past multiple months the bulge has gotten larger. She states the area is not tender or painful but does become ?tight? especially after she drinks a lot of water. She denies fever, nausea vomiting, diarrhea, obstipation, dysuria or hematuria. Her last bowel movement was 2 days ago and normal. She endorses a remote history of several C-sections, liposuction and tummy tuck. Related Data Allergies Allergy/AdvReac Type Severity Reaction Status Date / Time amoxicillin Allergy Unknown Verified 03/30/25 15:24 Review of Systems Review of Systems: All systems reviewed & are unremarkable except as noted in HPI and below Exam Narrative: GENERAL: Well-appearing, well-nourished, and in no acute distress. HEAD: Normocephalic, atraumatic. EYES: PERRLA and EOMI. ENT: Nares clear, no rhinorrhea or epistaxis. Mucous membranes moist. NECK: Supple. CHEST: Clear to auscultation. No respiratory distress. HEART: Regular rate and rhythm. No murmur heard. Normal peripheral pulses. ABDOMEN: Soft, nontender, nondistended, normal active bowel sounds. No rebound, guarding or rigidity. No palpable hernias. No overlying skin changes. : Deferred EXTREMITIES: Normal range of motion. No edema. SKIN: Warm, dry, no rash. NEURO: No focal deficits. Alert and oriented x3 Course Vital Signs Vital signs: Vital Signs Temperature 98.1 F 03/30/25 15:36 Pulse Rate 67 03/30/25 15:36 Respiratory Rate 18 03/30/25 15:36 Blood Pressure 121/70 03/30/25 15:36 Pulse Oximetry 100 03/30/25 15:36 Temperature 98.1 F 03/30/25 15:36 Pulse Rate 67 03/30/25 15:36 Respiratory Rate 18 03/30/25 15:36 Blood Pressure 121/70 03/30/25 15:36 Pulse Oximetry 100 03/30/25 15:36 MDM - Recheck/Abnormal Lab/Rx MDM Narrative Medical decision making narrative: 39-year-old female presents emergency department for intermittent abdominal old she for the past year, worsening over the past month. Triage vitals are stable. Abdomen is soft and nontender. No palpable hernia. No overlying skin changes. Lab work obtained by nursing staff shows no leukocytosis. Patient does have anemia with hemoglobin of 9.6 with a low MCV and MCHC. Patient does endorse a history of anemia. Denies melena or hematochezia. Chemistries unremarkable with normal lipase. negative. UA without infection. Be sure decision making your home denies hitting scans. Discuss overall his exam is reassuring do not suspect incarcerated or strangulated hernia. Patient would like to proceed with a CT scan. CT abdomen pelvis shows the following IMPRESSION: 1. No evidence of appendicitis, diverticulitis or intestinal obstruction. 2. Right ovarian cyst. 3. Possible soft tissue density in the posterior cervix. Clinical evaluation advised. 4. Constipation Patient updated on results. She is not having any right lower quadrant abdominal pain or suprapubic pain concerning for an ovarian torsion. Discussed incidental finding of the cervix. I did offer a pelvic exam however patient politely declined. Agrees to follow-up with her OBGYN. Will start her on a bowel regimen for constipation which may be the source of her abdominal bloating/distention. Advised increase fluid intake, fiber and follow-up with PCP. Referral provided. Strict ED return precautions discussed. She is agreeable with the plan verbalized understanding. Discharged in stable condition. Lab Data 03/30/25 15:39 03/30/25 15:39 Labs: Lab Results 03/30/25 03/30/25 03/30/25 Range/Units 15:39 15:46 15:49 WBC 7.6 (4.5-10.0) K/mm3 RBC 4.03 L (4.2-5.4) M/mm3 Hgb 9.6 L (12.0-15.0) g/dL Hct 30.7 L (37.0-47.0) % MCV 76.2 L (80-100) fl MCH 23.8 L (26-34) pg MCHC 31.3 L (32-36) g/dl RDW 19.1 H (11.5-14.5) % Plt Count 317 (150-375) k/mm3 MPV 10.5 H (7.4-10.4) fl Immature Gran % (Auto) 0.1 (0-0.5) % Neut % (Auto) 68.2 (45.5-73.1) % Lymph % (Auto) 23.3 (18.3-44.2) % Metcalfe % (Auto) 5.2 (2.6-8.5) % Eos % (Auto) 2.8 (0-4.4) % Baso % (Auto) 0.4 (0.2-1.2) % Lymph # (Auto) 1.76 (0.9-3.2) K/mm3 Metcalfe # (Auto) 0.4 (0.1-0.6) K/mm3 Eos # (Auto) 0.2 (0-0.3) K/mm3 Baso # (Auto) 0.0 (0.0-0.1) K/mm3 Abs Immat Gran (auto) 0.01 (0.00-0.031) K/mm3 Absolute Neuts (auto) 5.2 (1.3-6.7) K/mm3 Absolute Nucleated RBC 0.000 (0.0-0.012) K/mm3 Nucleated RBC % 0.0 (0.0-0.2) % Sodium 139 (137-145) mmol/L Potassium 4.0 (3.4-5.0) mmol/L Chloride 106 (98-107) mmol/L Carbon Dioxide 23 (22-30) mmol/L Anion Gap 10 (4-12) mmol/L BUN 9 (7-17) mg/dL Creatinine 0.82 (0.7-1.0) mg/dL Estim Creat Clear Calc 70 ml/min Estimated GFR > 60 (59 - ) Glucose 110 (65-110) mg/dL Calcium 9.4 (8.4-10.2) mg/dL Total Bilirubin 0.5 (0.2-1.3) mg/dL AST 22 (14-36) U/L ALT 13 (6-35) U/L Alkaline Phosphatase 38 (38-126) U/L Total Protein 7.7 (6.3-8.2) g/dL Albumin 4.5 (3.5-5.1) g/dL Lipase 92 (23-300) U/L Urine Color Yellow (Yellow) Urine Appearance Clear (Clear) Urine pH 6.0 (5.0-9.0) Ur Specific [place] 1.028 (1.001-1.035) Urine Protein Negative (Negative) mg/dL Urine Glucose (UA) Negative (Negative) mg/dL Urine Ketones 1+ H (Negative) mg/dL Ur Blood (Man) Negative (Negative) Urine Nitrate Negative (Negative) Urine Bilirubin Negative (Negative) Urine Urobilinogen 1.0 (<2.0) mg/dL Leukocyte Esterase Rfl Negative (Negative) PAU/UL POC Urine HCG, Qual Negative (Negative) Discharge Plan Discharge Clinical Impression: Hypochromic-microcytic anemia, Cyst of right ovary, Abnormality of cervix Constipation Qualifiers: Constipation type: unspecified constipation type Qualified Code(s): K59.00 - Constipation, unspecified Patient Disposition: Home Condition: Stable Instructions: Antibiotic Form, Ovarian Cyst (ED), Constipation (DC) Additional Instructions: You were evaluated in the emergency department for bulging to her abdomen. Your exam is reassuring. The CT scan shows hernia. Incidentally or found have a 2.5 cm right ovarian cyst and a possible abnormality to her cervix. Please follow-up closely with her OBGYN regarding these incidental findings. Your also found to be constipated which may be the source of your abdominal distension. Please eat a high-fiber diet, drink plenty of fluids and take the stool softeners and MiraLax as directed. Follow-up with the PCP or referred you to. Return to the emergency department if you develop any new or worsening abdominal pain, fever, you are unable to tolerate food or fluids, or other concerning symptoms. Patient Language: Lithuanian Prescriptions: New docusate sodium 100 mg capsule 100 mg PO BID Qty: 60 0RF polyethylene glycol 3350 17 gram/dose powder 17 g PO DAILY Qty: 119 0RF Follow-up/Referrals: Robbie Newton MD [Physician] - UNKNOWN,DOCTOR [Primary Care Provider] -
== END 2025-03-30 18:07 | disposition home or self-care (01) ==
PROVIDERS: Emergency Medicine; Emergency Provider Physician Assistant
DX: N83.201 Unspecified ovarian cyst, right side (principal); K59.00 Constipation, unspecified; N88.9 Noninflammatory disorder of cervix uteri, unspecified; D50.9 Iron deficiency anemia, unspecified
CPT/HCPCS: 36415; 74177; 80053; 81003; 81025; 83690; 85025; 99284; Q9967

== ENCOUNTER 2025-04-22 09:39 | Emergency (ER) | payer OTHER, MEDICAID, SELFPAY ==
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
[2025-04-22 09:43] VITALS: BP 128/70; PULSE 86; RESP 15; TEMP 36.7; O2SAT 100
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
[2025-04-22] MEDS: KETOROLAC (*BKC) 60 MG/2 ML VIAL IM (11:11)
[2025-04-22 11:15] LABS: BEDSIDEPREGUCG Negative (Negative)
[2025-04-22 13:20] VITALS: BP 126/71; PULSE 81; RESP 18; O2SAT 100
== END 2025-04-22 13:21 | disposition home or self-care (01) ==
PROVIDERS: Emergency Provider Registered Nurse
DX: S13.4XXA Sprain of ligaments of cervical spine, initial encounter (principal); S16.1XXA Strain of muscle, fascia and tendon at neck level, initial encounter; S39.012A Strain of muscle, fascia and tendon of lower back, initial encounter; S29.012A Strain of muscle and tendon of back wall of thorax, initial encounter; V49.40XA Driver injured in collision with unspecified motor vehicles in traffic accident, initial encounter
CPT/HCPCS: 72125; 72128; 72131; 81025; 96372; 99284; J1885